=== PATIENT | female | born 1950 | race Caucasian/White ===

== ENCOUNTER 2017-01-20 15:32 | Inpatient (IN) ==
[2017-01-20 16:36] LABS: URINE SOURCE CLEAN CATCH
[2017-01-20 16:44] LABS: BILIRUBIN URINE SMALL (NEGATIVE); BLOOD URINE NEGATIVE (NEGATIVE); COLOR YELLOW; GLUCOSE URINE NEGATIVE (NEGATIVE); LEUKOCYTES URINE LARGE (NEGATIVE); NITRITE URINE NEGATIVE (NEGATIVE); PROTEIN URINE 70 mg/dL (NEGATIVE); SP GRAVITY URINE 1.044; TURBIDITY URINE HAZY (CLEAR); UR EPITHELIAL CELLS >10 /HPF (<10); URINE BACTERIA 1+ /HPF; URINE CULTURE NEEDED? YES; URINE MICRO REVIEW NEEDED? YES; URINE RBC <10 /HPF (<10); URINE WBC TNTC /HPF (<10); UROBILINOGEN URINE 4 mg/dL (NORMAL)
[2017-01-20] MEDS: PROTONIX IV SCH (16:48)
[2017-01-20] MEDS: SODIUM CHLORIDE 0.9% INJ SCH (16:48)
[2017-01-20] MEDS: LOVENOX SUBQ SCH (16:48)
[2017-01-20] MEDS: NS 1,000 ML IV SCH (16:49)
[2017-01-20 16:50] LABS: MANUAL DIFF NEEDED? NO
[2017-01-20 16:53] LABS: BASO% 0.3 % (0.0-0.8); EOS# 0.37 X1000 (0.0-0.7); EOS% 2.6 % (0.0-10.0); HEMATOCRIT 42.9 % (37.0-47.0); HEMOGLOBIN 13.9 g/dL (12.0-16.0); IMM GRAN# 0.02 X1000 (0.0-0.04); IMM GRAN% 0.1 % (0.0-0.5); LYMPH# 2.17 X1000 (1.2-3.4); LYMPH% 15.5 % (20.5-51.1); MCH 30.5 PG (27-31); MCHC 32.4 g/dL (33-37); MCV 94.3 FL (81-99); MONO# 0.91 X1000 (0.11-0.59); MONO% 6.5 % (1.7-9.3); MPV 10.9 FL (7.4-10.4); PLT 296 X1000 (130-400); RBC 4.55 XMIL (4.2-5.4)
[2017-01-20 16:56] LABS: URINE CASTS NONE SEEN
[2017-01-20 17:05] LABS: INR 0.98; PROTIME 10.3 Seconds (9.2-11.7); PTT 27.2 Seconds (22.0-36.0)
[2017-01-20 17:13] LABS: ALBUMIN 3.4 g/dL (3.5-5.0); CALCIUM 9.4 mg/dL (8.8-10.2); POTASSIUM 4.5 mmol/L (3.5-5.1); TOTAL BILIRUBIN 0.2 mg/dL (0.20-1.00); TOTAL PROTEIN 6.7 g/dL (6.3-8.3)
[2017-01-20] MEDS ORDERED: RESTASIS 0.05% OPH DROPS BOTH EYES PRN (17:32)
[2017-01-20] MEDS: INVANZ 1 GM/NS 1 GM/50 ML IVPB IV SCH (17:43)
[2017-01-20 17:56] LABS: ALLEN TEST YES; BE 4.1 mmoll (-3.0-3.0); BLOOD TYPE ARTERIAL; DRAW SITE R RADIAL; METHB 0.7 % (0.0-1.5); O2(CT) 20.3 mL/dL (15.0-23.0); PCO2(98.6) 50 mmHg (35-45); PO2(98.6) 79 mmHg (60-100); SAMPLE BLOOD; SAO2 97.3 % (95.0-100.0); THB 15.2 g/dL (11.5-17.4); pH(98.6) 7.39 (7.35-7.45)
[2017-01-20 17:57] LABS: MODALITY CANNULA
[2017-01-20] MEDS: DUONEB (A & A) INH SCH ×2 (19:09→23:03)
[2017-01-20] MEDS: SYMBICORT 160/4.5 MICROGM INHALER INH SCH (19:09)
[2017-01-20] MEDS: LASIX PO SCH (20:18)
[2017-01-20] MEDS: LYRICA PO SCH (20:19)
[2017-01-20] MEDS: CRESTOR PO SCH (20:19)
[2017-01-20] MEDS: COREG PO SCH (20:19)
[2017-01-20] MEDS: DESYREL PO SCH (20:19)
[2017-01-20] MEDS ORDERED: SOLU-MEDROL IV ONE (20:42)
[2017-01-21] MEDS ORDERED: SOLU-MEDROL IV ONE (01:45)
[2017-01-21] MEDS: DUONEB (A & A) INH SCH ×6 (03:43→22:53)
[2017-01-21] MEDS: NS 1,000 ML IV SCH ×4 (05:27→21:18)
[2017-01-21] MEDS: SYMBICORT 160/4.5 MICROGM INHALER INH SCH ×2 (07:45→19:10)
[2017-01-21] MEDS: SPIRIVA INH SCH (07:46)
[2017-01-21] MEDS: DALIRESP PO SCH (10:15)
[2017-01-21] MEDS: LYRICA PO SCH ×2 (10:15→21:17)
[2017-01-21] MEDS: PREDNISONE PO SCH (10:15)
[2017-01-21] MEDS: COREG PO SCH ×2 (10:15→21:17)
[2017-01-21] MEDS: ESTRACE PO SCH (10:16)
[2017-01-21] MEDS: CELEBREX PO SCH (10:16)
[2017-01-21] MEDS: CYMBALTA PO SCH (10:16)
[2017-01-21] MEDS: NORVASC PO SCH (10:16)
[2017-01-21] MEDS: LASIX PO SCH ×3 (10:16→22:36)
[2017-01-21] MEDS: NORCO-5 PO PRN ×2 (12:09→21:17)
[2017-01-21] MEDS: PROTONIX IV SCH (17:02)
[2017-01-21] MEDS: SODIUM CHLORIDE 0.9% INJ SCH (17:02)
[2017-01-21] MEDS: GLUCOPHAGE PO SCH (17:02)
[2017-01-21] MEDS: INVANZ 1 GM/NS 1 GM/50 ML IVPB IV SCH (17:02)
[2017-01-21] MEDS: LOVENOX SUBQ SCH (17:03)
[2017-01-21] MEDS: DESYREL PO SCH (21:17)
[2017-01-21] MEDS: CRESTOR PO SCH (21:17)
[2017-01-22] MEDS: DUONEB (A & A) INH SCH ×6 (03:50→23:05)
[2017-01-22] MEDS: ATIVAN PO PRN ×2 (04:29→22:23)
[2017-01-22] MEDS: NORCO-5 PO PRN (04:29)
[2017-01-22] MEDS: LASIX PO SCH ×2 (06:58→15:06)
[2017-01-22 07:17] LABS: MANUAL DIFF NEEDED? NO
[2017-01-22 07:36] LABS: BASO% 0.2 % (0.0-0.8); EOS# 0.08 X1000 (0.0-0.7); EOS% 0.7 % (0.0-10.0); HEMATOCRIT 34.2 % (37.0-47.0); IMM GRAN# 0.06 X1000 (0.0-0.04); IMM GRAN% 0.5 % (0.0-0.5); LYMPH% 19.5 % (20.5-51.1); MCH 30.4 PG (27-31); MCHC 32.2 g/dL (33-37); MCV 94.5 FL (81-99); MONO# 1.26 X1000 (0.11-0.59); MONO% 11.2 % (1.7-9.3); MPV 10.6 FL (7.4-10.4); NEUT% 67.9 % (42.2-75.2); PLT 254 X1000 (130-400); RBC 3.62 XMIL (4.2-5.4)
[2017-01-22 07:46] LABS: AGAP 8; BUN 19 mg/dL (8-22); CHLORIDE 102 mmol/L (98-107); COSMO 289; POTASSIUM 4.1 mmol/L (3.5-5.1); SODIUM 143 mmol/L (136-145); TCO2 33 mmol/L (25-35)
[2017-01-22] MEDS: COREG PO SCH ×2 (10:06→22:16)
[2017-01-22] MEDS: PREDNISONE PO SCH (10:06)
[2017-01-22] MEDS: CYMBALTA PO SCH (10:06)
[2017-01-22] MEDS: ESTRACE PO SCH (10:07)
[2017-01-22] MEDS: LYRICA PO SCH ×2 (10:07→22:16)
[2017-01-22] MEDS: NORVASC PO SCH (10:07)
[2017-01-22] MEDS: DALIRESP PO SCH (10:07)
[2017-01-22] MEDS: CELEBREX PO SCH (10:07)
[2017-01-22] MEDS: SYMBICORT 160/4.5 MICROGM INHALER INH SCH ×2 (11:48→19:50)
[2017-01-22] MEDS: SPIRIVA INH SCH (11:48)
[2017-01-22] MEDS: CYANOCOBALAMIN IM SCH (13:32)
[2017-01-22] MEDS: NS 1,000 ML IV SCH (13:32)
[2017-01-22] MEDS: DIFLUCAN PO SCH (13:32)
[2017-01-22] MEDS: LOVENOX SUBQ SCH (17:20)
[2017-01-22] MEDS: SODIUM CHLORIDE 0.9% INJ SCH (17:20)
[2017-01-22] MEDS: PROTONIX IV SCH (17:20)
[2017-01-22] MEDS: GLUCOPHAGE PO SCH (17:20)
[2017-01-22] MEDS: INVANZ 1 GM/NS 1 GM/50 ML IVPB IV SCH (17:22)
[2017-01-22] MEDS: DESYREL PO SCH (22:16)
[2017-01-22] MEDS: CRESTOR PO SCH (22:16)
[2017-01-23] MEDS: NS 1,000 ML IV SCH (01:40)
[2017-01-23] MEDS: DUONEB (A & A) INH SCH ×3 (03:05→11:22)
[2017-01-23] MEDS: LASIX PO SCH (06:38)
[2017-01-23] MEDS: SPIRIVA INH SCH (07:35)
[2017-01-23] MEDS: SYMBICORT 160/4.5 MICROGM INHALER INH SCH (07:35)
[2017-01-23 08:29] VITALS: BP 123/71
[2017-01-23] MEDS: CELEBREX PO SCH (08:36)
[2017-01-23] MEDS: CYMBALTA PO SCH (08:36)
[2017-01-23] MEDS: ESTRACE PO SCH (08:36)
[2017-01-23] MEDS: DALIRESP PO SCH (08:36)
[2017-01-23] MEDS: NORVASC PO SCH (08:37)
[2017-01-23] MEDS: LYRICA PO SCH (08:37)
[2017-01-23] MEDS: COREG PO SCH (08:37)
[2017-01-23] MEDS: PREDNISONE PO SCH (08:37)
[2017-01-23] MEDS: DIFLUCAN PO SCH (08:37)
[2017-01-23] MEDS: CYANOCOBALAMIN IM SCH (08:38)
[2017-01-23] MEDS ORDERED: DIFLUCAN PO SCH (09:00)
[2017-01-23] MEDS: NORCO-5 PO PRN (13:06)
== END 2017-01-23 14:05 | disposition home or self-care (01) ==
LOC: DIRADM → 3N 15:32
PROVIDERS: ADMIT Internal Medicine; ATTEND Internal Medicine

== ENCOUNTER 2019-08-06 10:51 | Inpatient (IN) ==
[2019-08-06] MEDS ORDERED: VENTOLIN HFA INH PRN (12:45)
--- NOTE | 2019-08-06 12:55 | EKG Report ---
Test Performed on : 08/06/2019 12:45:51 PM Test Reason : COPD new patient Blood Pressure : / mmHG Vent. Rate : 079 BPM Atrial Rate : 079 BPM P-R Int : 128 ms QRS Dur : 070 ms QT Int : 358 ms P-R-T Axes : 072 070 061 degrees QTc Int : 410 ms Normal sinus rhythm. Normal ECG When compared with ECG of 23-DEC-2017 09:04, No significant change was found Confirmed by Juan Carlos Brown MD ([id number]) on 08/06/2019 3:05:56 PM
[2019-08-06] MEDS ORDERED: D50W SYRINGE IV PRN (13:00)
--- NOTE | 2019-08-06 13:09 | Diag Imaging Result Doc PS360 ---
EXAM: CHEST-PORTABLE HISTORY: COPD new patient TECHNIQUE: Single view COMPARISON: 06/19/2018 FINDINGS: The lungs are well expanded. The heart is not enlarged. The vessels are not distended. There are no infiltrates. No effusion identified. IMPRESSION: Negative exam. Electronically signed by Refugio Shelley 08/06/2019 1:07 PM
[2019-08-06 13:17] LABS: BASO# 0.03 X1000 (0.0-0.2); BASO% 0.2 % (0.0-0.8); EOS% 0.8 % (0.0-10.0); HEMATOCRIT 31.3 % (37.0-47.0); HEMOGLOBIN 9.1 g/dL (12.0-16.0); IMM GRAN# 0.02 X1000 (0.0-0.04); IMM GRAN% 0.2 % (0.0-0.5); LYMPH# 1.59 X1000 (1.2-3.4); MCH 26.8 PG (27-31); MCHC 29.1 g/dL (33-37); MCV 92.3 FL (81-99); MONO% 7.4 % (1.7-9.3); MPV 9.9 FL (7.4-10.4); NEUT# 9.55 X1000 (1.4-6.5); NEUT% 78.4 % (42.2-75.2); PLT 368 X1000 (130-400); RBC 3.39 XMIL (4.2-5.4); WBC 12.19 X1000 (4.8-10.8)
[2019-08-06 13:27] LABS: ALLEN TEST YES; BE 7.3 mmoll (-3.0-3.0); BLOOD TYPE ARTERIAL; HCO3-(ACT) 30.5 mmoll (20.0-26.0); METHB 0.8 % (0.0-1.5); O2(CT) 11.6 mL/dL (15.0-23.0); PO2(98.6) 50 mmHg (60-100); SAMPLE BLOOD; SAO2 89.1 % (95.0-100.0); THB 9.4 g/dL (11.5-17.4); pH(98.6) 7.41 (7.35-7.45)
[2019-08-06 13:28] LABS: PCO2(98.6) 52 mmHg (35-45)
[2019-08-06 13:29] LABS: MODALITY ROOM AIR; O2HB 87.4 % (95.0-99.0)
[2019-08-06] MEDS: CARAFATE PO SCH ×3 (13:29→23:17)
[2019-08-06] MEDS: SOLU-MEDROL IV SCH ×2 (13:29→23:17)
[2019-08-06] MEDS: LOVENOX SUBQ SCH (13:29)
[2019-08-06] MEDS: GLUCOPHAGE PO SCH (13:30)
[2019-08-06] MEDS: ZOSYN 3.375 GM in NS 50 ML IV SCH ×3 (13:31→23:18)
[2019-08-06 13:50] LABS: AGAP 9; ALB/GLOB RATIO 1.4; ALBUMIN 3.4 g/dL (3.5-5.0); ALKALINE PHOSPHATASE 94 U/L (32-104); BUN 12 mg/dL (8-22); CALCIUM 9.3 mg/dL (8.8-10.2); CHLORIDE 104 mmol/L (98-107); COSMO 289; CREATININE 0.9 mg/dL (0.5-0.9); ESTIMATED GFR > 60; GLUCOSE 107 mg/dL (70-104); GOT 11 U/L (10-30); GPT 9 U/L (10-36); POTASSIUM 4.6 mmol/L (3.5-5.1); SODIUM 145 mmol/L (136-145); TCO2 32 mmol/L (25-35); TOTAL BILIRUBIN < 0.15 mg/dL (0.20-1.00); TOTAL PROTEIN 5.9 g/dL (6.3-8.3)
[2019-08-06] MEDS: LEVAQUIN 500 MG/D5W 500 MG/100 ML IVPB IV SCH (14:12)
[2019-08-06 14:24] LABS: URINE SOURCE CLEAN CATCH
[2019-08-06 14:29] LABS: BILIRUBIN URINE NEGATIVE (NEGATIVE); BLOOD URINE NEGATIVE (NEGATIVE); COLOR YELLOW; GLUCOSE URINE NEGATIVE (NEGATIVE); KETONE URINE NEGATIVE (NEGATIVE); LEUKOCYTES URINE NEGATIVE (NEGATIVE); NITRITE URINE NEGATIVE (NEGATIVE); PH URINE 7.5; PROTEIN URINE TRACE mg/dL (NEGATIVE); SP GRAVITY URINE 1.024; TURBIDITY URINE HAZY (CLEAR); UROBILINOGEN URINE 2 mg/dL (NORMAL)
[2019-08-06 14:31] LABS: UR EPITHELIAL CELLS <10 /HPF (<10); URINE BACTERIA 2+ /HPF; URINE RBC <10 /HPF (<10); URINE WBC <10 /HPF (<10)
[2019-08-06] MEDS: LYRICA PO SCH ×2 (15:14→23:17)
[2019-08-06] MEDS: DUONEB (A & A) INH SCH ×3 (15:40→22:59)
[2019-08-06] MEDS: HUMALOG SUBQ SCH ×2 (16:29→23:30)
--- NOTE | 2019-08-06 19:00 | HISTORY AND PHYSICAL ---
CHIEF COMPLAINT: Chest congestion, cough, shortness of breath. HISTORY OF PRESENT ILLNESS: Ms. Jacome is a 68-year-old, white female patient, known case of advanced COPD, requiring home oxygen nebulizer treatment. The patient started getting sick yesterday, increasing cough, chest congestion, expectoration, which was yellowish-green in color, increasing shortness of breath, decreased exercise tolerance. The patient was complaining of low- grade fever. She denied any typical chest pain. The patient was getting short of breath walking across the room. The patient was using her oxygen and nebulizer treatment, her prednisone, but it was not helping. The patient did have some chest wall pain when she coughed. The patient called the office. We evaluated her in the office. Her presentation was COPD exacerbation, and I decided to admit the patient for further care. The patient was in moderate respiratory distress. The patient denied any leg swelling. No nausea or vomiting. The patient did have some runny nose, stuffy nose, scratchy throat. No history of exposure to any sick patient with known illness. No recent weight loss. No heat or cold intolerance. The patient did have polyuria, polydipsia. No dysuria. Denied any vaginal discharge, spotting, bleeding. The patient was claiming compliance to her medications. The patient does have history of diabetes mellitus on medication. No major hypoglycemic episode. Denied being depressed. No heat or cold intolerance. No focal numbness, tingling, weakness. No further history available at this time. ALLERGIES: No known drug allergy. MEDICATIONS: Includes nebulizer treatment, Norvasc, Astelin nose spray, Coreg, Cymbalta, Estradiol, Trelegy, Synthroid, metformin, Myrbetriq, Singulair, Prilosec, potassium, prednisone, Lyrica, Daliresp, Crestor, Carafate, trazodone. PAST MEDICAL HISTORY: Gastritis and reflux disease, hyperlipidemia, COPD, peripheral neuropathy, insomnia, rhinitis, urinary incontinence, hypothyroidism, menopause, situational depression, low back pain. PERSONAL HISTORY: , nonsmoker. Denied alcohol or substance abuse. Patient is on disability. FAMILY HISTORY: Significant for lung cancer in the sister, otherwise noncontributory. REVIEW OF SYSTEMS: As per HPI. PHYSICAL EXAMINATION: GENERAL: Elderly white female patient in mild distress. VITAL SIGNS: Blood pressure 122/54, pulse 85, respirations 20, temperature 98.5 degrees, O2 saturation 94%. SKIN: Senile turgor. HEENT: Head atraumatic, normocephalic. [place] conjunctivae. Anicteric sclerae. Extraocular muscle movement normal. Fundus cannot be penetrated. Good oral hygiene. No tonsillopharyngeal congestion or exudate. Ears and nose benign. NECK: Supple. No JVD, thyromegaly or lymphadenopathy. CHEST: Bilateral good air entry present. Bilateral occasional wheezing. No rales. CARDIOVASCULAR: S1 and S2 heard. No gallop or thrill. ABDOMEN: Soft, globular. Bowel sounds present. No organomegaly or mass. EXTREMITIES: No cyanosis, clubbing. No acute DVT. Peripheral pulsation intact. CENTRAL NERVOUS SYSTEM: Alert, awake, able to move all 4 limbs. MUSCULOSKELETAL SYSTEM: Crepitation in both the knee joints. Vague tenderness lumbosacral spine. IMPRESSION: The patient presented with: 1. Chronic obstructive pulmonary disease exacerbation most likely due to bronchitis, rule out pneumonia. 2. Chronic respiratory failure, both hypoxemic and hypercarbic. 3. Diabetes mellitus on insulin. 4. Situational depression. 5. Gastritis and reflux disease. 6. Hyperlipidemia. 7. Rhinitis. PLAN: Admit the patient. IV antibiotics. Bronchodilator treatment. Check appropriate labs. Pulmonary consult with her cafeteria cook. Overall plan discussed with the patient, and she is in agreement. Her chest x-ray was benign. EKG reviewed. Lab data revealed mild leukocytosis with left shift. Her D-dimer was 1.33. Blood gas: pH 7.41, pCO2 52, pO2 was 50 and O2 saturation was 89.1. This was done on room air. Her electrolytes result also reviewed. Cardiac isoenzymes were negative. Urinalysis results reviewed. We will continue her home medicine. cc: Lexx Arriaga MD
[2019-08-06] MEDS: MUCOMYST 20% INH SCH (20:06)
[2019-08-06] MEDS: COREG PO SCH (23:17)
[2019-08-06] MEDS: DESYREL PO SCH (23:17)
[2019-08-06] MEDS: CRESTOR PO SCH (23:18)
[2019-08-06] MEDS: SINGULAIR PO SCH (23:18)
[2019-08-07] MEDS: DUONEB (A & A) INH SCH ×2 (03:40→08:02)
[2019-08-07] MEDS: ZOSYN 3.375 GM in NS 50 ML IV SCH ×4 (03:44→22:16)
[2019-08-07] MEDS: ASTELIN NASAL SPRAY NAS SCH ×2 (03:45→14:11)
[2019-08-07] MEDS: SOLU-MEDROL IV SCH ×3 (06:41→22:16)
[2019-08-07] MEDS: HUMALOG SUBQ SCH ×4 (06:41→22:17)
[2019-08-07] MEDS: SYNTHROID PO SCH (06:54)
[2019-08-07] MEDS: PRILOSEC PO SCH ×2 (06:54→07:02)
[2019-08-07 07:05] LABS: HEMATOCRIT 30.7 % (37.0-47.0); HEMOGLOBIN 9.1 g/dL (12.0-16.0); IMM GRAN# 0.05 X1000 (0.0-0.04); IMM GRAN% 0.5 % (0.0-0.5); LYMPH# 1.19 X1000 (1.2-3.4); LYMPH% 12.6 % (20.5-51.1); MCH 26.8 PG (27-31); MCHC 29.6 g/dL (33-37); MCV 90.3 FL (81-99); MONO# 0.15 X1000 (0.11-0.59); MONO% 1.6 % (1.7-9.3); MPV 10.1 FL (7.4-10.4); NEUT# 8.09 X1000 (1.4-6.5); NEUT% 85.3 % (42.2-75.2); PLT 401 X1000 (130-400); RDW 13.5 % (11.5-14.5); WBC 9.48 X1000 (4.8-10.8)
[2019-08-07 07:17] LABS: AGAP 9; ALB/GLOB RATIO 0.9; ALBUMIN 3.2 g/dL (3.5-5.0); ALKALINE PHOSPHATASE 93 U/L (32-104); BUN 15 mg/dL (8-22); CALCIUM 9.4 mg/dL (8.8-10.2); CHLORIDE 103 mmol/L (98-107); COSMO 284; CREATININE 0.8 mg/dL (0.5-0.9); ESTIMATED GFR > 60; GLUCOSE 134 mg/dL (70-104); GOT 9 U/L (10-30); GPT 7 U/L (10-36); POTASSIUM 4.1 mmol/L (3.5-5.1); SODIUM 141 mmol/L (136-145); TCO2 29 mmol/L (25-35); TOTAL BILIRUBIN 0.17 mg/dL (0.20-1.00); TOTAL PROTEIN 6.6 g/dL (6.3-8.3)
[2019-08-07 07:21] LABS: HEMOGLOBIN A1C 6.1 % (4.8-6.0)
--- NOTE | 2019-08-07 07:53 | PROGRESS NOTE ---
DATE: 08/07/2019 SUBJECTIVE: Ms. Jacome is doing better. Shortness of breath is improving. The patient does have some cough with scanty sputum production. She denied any nausea or vomiting. No pleuritic type of chest pain. Her wheezing is improving. The patient claims she was not able to sleep well. Patient admitted with chest congestion, cough, wheezing, increasing shortness of breath, COPD exacerbation. OBJECTIVE: Vital Signs: Vital signs noted. Neck: Supple. No JVD. Lungs: Bilateral good air entry present. Occasional wheezing. CVS: S1 and S2 heard. Abdomen: Soft, globular. Bowel sounds present. Extremities: No cyanosis, clubbing. No acute DVT. URGENT CARE: Alert, awake, able to move all 4 limbs. The patient's medical problems includes: 1. Chronic obstructive pulmonary disease exacerbation. Clinically doing better. 2. NIDDM. Last hemoglobin A1c checked today was 6.1. 3. Hypoxemic and hypercarbic respiratory failure. 4. Situational depression. The patient was tested for influenza and COVID-19. Her chest x-ray results reviewed. Overall, patient is doing better. We will continue current treatment. Close observation. cc: Lexx Arriaga MD
[2019-08-07 07:58] LABS: LYMPHS 15 % (21-51); SEGS 85 % (42-75)
[2019-08-07] MEDS: MUCOMYST 20% INH SCH (08:02)
[2019-08-07] MEDS: DALIRESP PO SCH (08:24)
[2019-08-07] MEDS: CYMBALTA PO SCH (08:26)
[2019-08-07] MEDS: CARAFATE PO SCH ×4 (08:26→22:16)
[2019-08-07] MEDS: MYRBETRIQ E.R. PO SCH (08:26)
[2019-08-07] MEDS: KLOR-CON PO SCH (08:27)
[2019-08-07] MEDS: COREG PO SCH ×2 (08:29→22:15)
[2019-08-07] MEDS: ESTRACE PO SCH (08:29)
[2019-08-07] MEDS: NORVASC PO SCH (08:30)
[2019-08-07] MEDS: LYRICA PO SCH ×3 (08:30→22:16)
[2019-08-07] MEDS ORDERED: UMECLIDIN intranasal SCH (09:00)
[2019-08-07] MEDS ORDERED: VILANTER intranasal SCH (09:00)
[2019-08-07] MEDS ORDERED: PREDNISONE PO SCH (09:00)
[2019-08-07] MEDS ORDERED: [UNRECOGNIZED DRUG - OTHER] intranasal SCH (09:00)
[2019-08-07] MEDS ORDERED: FLUTICASONE intranasal SCH (09:00)
--- NOTE | 2019-08-07 10:50 | CONSULTATION ---
DATE OF CONSULTATION: 08/07/2019 REFERRING PHYSICIAN: Dr. Arriaga. CHIEF COMPLAINT: Evaluation for shortness of breath, chest tightness, expectoration. The patient is known to have COPD. HISTORY OF PRESENTING ILLNESS: This is a 68-year-old female known to our practice with advanced COPD on home oxygen, sleep apnea on home CPAP machine, diabetes, hyperlipidemia, reflux disease, hypothyroidism, depression, and chronic back pain. She presented to the hospital with shortness of breath, cough, chest congestion, expectoration. She is on home steroids. Some chest discomfort. PAST MEDICAL HISTORY: As above. PAST SURGICAL HISTORY: As above, otherwise noncontributory. SOCIAL HISTORY: She is staying home, retired, and her daughter lives with her. She is not a smoker. MEDICATIONS: Medications at home and at the hospital were reviewed ALLERGIES: No known drug allergies. REVIEW OF SYSTEMS: As detailed in the history of presenting illness, otherwise noncontributory. FAMILY HISTORY: Lung cancer in siblings. PHYSICAL EXAMINATION: Vital Signs: Noted. Head and Neck: Examined. Trachea midline. Chest Examination: Reduced entry. Prolonged expiratory phase. Cardiac Examination: S1, S2. Abdominal Examination: Nontender. Leg Examination: No pedal edema. Neurologic Examination: Awake and communicative, alert. LABORATORIES AND INVESTIGATIONS: Chest x-ray shows no acute changes. CBC, CMP seen with WBC being 9.8. Earlier, it was 12.21 yesterday. She is on antibiotics and steroids. PH of 7.41, pCO2 of 52, and PO2 of 50. Medications in the hospital were reviewed and they include Solu-Medrol, Zosyn, Levaquin. Other medications were reviewed. ASSESSMENT AND PLAN: A 68-year-old female with: 1. Chronic obstructive pulmonary disease exacerbation. 2. Possible upper respiratory tract infection with expectoration. Given the fact that she is elderly and she is partially immunocompromised, and is on steroids, we are going to test for Covid-19. 3. Rule out pulmonary embolism with CT angiogram after withholding metformin. 4. Continue steroids and antibiotics. cc: MD Lexx Balderrama MD
[2019-08-07] MEDS: LEVAQUIN 500 MG/D5W 500 MG/100 ML IVPB IV SCH (14:08)
[2019-08-07] MEDS: LOVENOX SUBQ SCH (14:10)
[2019-08-07] MEDS: VENTOLIN HFA INH SCH ×3 (16:05→20:24)
[2019-08-07] MEDS: SINGULAIR PO SCH (22:15)
[2019-08-07] MEDS: DESYREL PO SCH (22:16)
[2019-08-07] MEDS: CRESTOR PO SCH (22:16)
[2019-08-08] MEDS: ASTELIN NASAL SPRAY NAS SCH ×4 (02:51→23:24)
[2019-08-08] MEDS: VENTOLIN HFA INH SCH ×5 (03:30→23:22)
[2019-08-08] MEDS: ZOSYN 3.375 GM in NS 50 ML IV SCH ×4 (04:20→20:24)
[2019-08-08] MEDS: SOLU-MEDROL IV SCH (04:20)
[2019-08-08] MEDS: HUMALOG SUBQ SCH ×5 (06:53→20:36)
[2019-08-08] MEDS: SYNTHROID PO SCH (06:53)
--- NOTE | 2019-08-08 07:12 | PROGRESS NOTE ---
DATE: 08/08/2019 SUBJECTIVE: Ms. Jacome is feeling better. No unusual shortness of breath. Does have mild chronic cough. No high-grade fever or chills. Denied any nausea or vomiting. Oral intake is fair. The patient was able to sleep better last night. OBJECTIVE: Vital Signs: Noted. Neck: Supple. No JVD. Lungs: Bilateral good air entry present. Occasional wheezing. CVS: S1 and S2 heard. Abdomen: Soft, nontender. Bowel sounds present. Extremities: No cyanosis, clubbing. No acute DVT. PHOTOCOPY OPERATOR: Alert, awake. Able to move all 4 limbs. ASSESSMENT: 1. The patient was admitted with chronic obstructive pulmonary disease exacerbation. 2. Chronic hypoxemic and hypercarbic respiratory failure. 3. Anemia, most likely of chronic disease. 4. Urge urinary incontinence, doing well. 5. Hypertension, on Coreg and Norvasc. 6. Hyperlipidemia, on Crestor. 7. Elevated D-dimer. 8. Diabetes mellitus. PLAN: The patient is scheduled to have a CTA of the pulmonary artery. The patient had Covid-19 ordered by bulb sorter, waiting for the results. Out of bed to chair. Ambulate in the room. The patient is in respiratory isolation. I am going to repeat blood work tomorrow. cc: Lexx Arriaga MD
[2019-08-08] MEDS: PRILOSEC PO SCH (08:42)
[2019-08-08] MEDS: ESTRACE PO SCH (08:42)
[2019-08-08] MEDS: CARAFATE PO SCH ×4 (08:42→20:24)
[2019-08-08] MEDS: COREG PO SCH ×2 (08:43→20:25)
[2019-08-08] MEDS: KLOR-CON PO SCH (08:43)
[2019-08-08] MEDS: MYRBETRIQ E.R. PO SCH (08:43)
[2019-08-08] MEDS: CYMBALTA PO SCH (08:43)
[2019-08-08] MEDS: DALIRESP PO SCH (08:43)
[2019-08-08] MEDS: NORVASC PO SCH (08:43)
[2019-08-08] MEDS: LYRICA PO SCH ×3 (08:44→20:25)
[2019-08-08] MEDS: PREDNISONE PO SCH (08:44)
--- NOTE | 2019-08-08 09:37 | Diag Imaging Result Doc PS360 ---
EXAM: CT ANGIOGRM PULMONARY ARTERIES INDICATION: rule out PE TECHNIQUE: This exam was performed using automated exposure control, adjustment of mA or kV according to patient size, and/or use of iterative reconstruction technique. Thin section axial images and 3-D MIPS were obtained. COMPARISON: 06/14/2016 FINDINGS: There is no evidence of pulmonary embolism. There is mild to moderate patchy thoracic aortic atherosclerotic calcification. There is no evidence of thoracic aortic aneurysm or dissection. There are calcified subcarinal lymph nodes indicating prior granulomatous disease. There is no evidence of significant mediastinal or hilar lymphadenopathy, otherwise. There is likely very mild emphysema. There is atelectasis and/or scarring involving the lingula and right middle lobe. This is also seen on the previous study but is more prominent. There is a small focal opacity at the posterior aspect of the right lower lobe on image 62 of series 4 that was probably present on the previous study but it is more prominent. This has the appearance of focal fibrosis or possibly atypical focal pneumonitis. There are mild fibrotic changes and atelectasis at both lung bases not identified on the previous study. There are a few scattered nodules in the right lower lobe that are grossly unchanged. There is a focus of fibrosis in the left upper lobe near the apex that is essentially stable. Limited views of the upper abdomen are essentially unremarkable. IMPRESSION: 1.No evidence of pulmonary embolism. 2.Patchy fibrotic foci and atelectasis, there is overall worsening the previous study as detailed above. 3.A few stable vague nodular opacities in the right lower lobe and a small focal opacity at the posterior aspect of the right lower lobe that is more prominent. This may represent worsening fibrosis or atypical pneumonitis that has worsened. Electronically signed by Bernardo Roberts 08/08/2019 9:34 AM
[2019-08-08] MEDS: LEVAQUIN 500 MG/D5W 500 MG/100 ML IVPB IV SCH ×2 (12:14→14:37)
[2019-08-08] MEDS: LOVENOX SUBQ SCH (12:14)
[2019-08-08] MEDS: DESYREL PO SCH (20:24)
[2019-08-08] MEDS: SINGULAIR PO SCH (20:25)
[2019-08-08] MEDS: CRESTOR PO SCH (20:25)
[2019-08-09] MEDS: VENTOLIN HFA INH SCH ×2 (03:00→08:10)
[2019-08-09] MEDS: ZOSYN 3.375 GM in NS 50 ML IV SCH ×3 (03:55→16:00)
[2019-08-09] MEDS: HUMALOG SUBQ SCH ×3 (06:11→16:06)
[2019-08-09] MEDS: SYNTHROID PO SCH (06:14)
[2019-08-09] MEDS ORDERED: LASIX IV ONE (06:55)
[2019-08-09 06:59] LABS: BASO# 0.01 X1000 (0.0-0.2); BASO% 0.1 % (0.0-0.8); HEMATOCRIT 30.2 % (37.0-47.0); HEMOGLOBIN 8.8 g/dL (12.0-16.0); IMM GRAN# 0.07 X1000 (0.0-0.04); IMM GRAN% 0.5 % (0.0-0.5); LYMPH# 2.58 X1000 (1.2-3.4); LYMPH% 18.2 % (20.5-51.1); MCH 26.6 PG (27-31); MCHC 29.1 g/dL (33-37); MCV 91.2 FL (81-99); MONO% 9.2 % (1.7-9.3); MPV 9.8 FL (7.4-10.4); NEUT# 10.18 X1000 (1.4-6.5); PLT 439 X1000 (130-400); RBC 3.31 XMIL (4.2-5.4); RDW 14.1 % (11.5-14.5); WBC 14.14 X1000 (4.8-10.8)
[2019-08-09 07:19] LABS: AGAP 6; ALB/GLOB RATIO 1.1; ALBUMIN 2.8 g/dL (3.5-5.0); ALKALINE PHOSPHATASE 70 U/L (32-104); BUN 24 mg/dL (8-22); CHLORIDE 109 mmol/L (98-107); COSMO 295; CREATININE 0.8 mg/dL (0.5-0.9); ESTIMATED GFR > 60; GLUCOSE 97 mg/dL (70-104); GOT 10 U/L (10-30); GPT 8 U/L (10-36); MAGNESIUM 2.3 mg/dL (1.5-2.7); POTASSIUM 4.2 mmol/L (3.5-5.1); SODIUM 146 mmol/L (136-145); TCO2 31 mmol/L (25-35); TOTAL BILIRUBIN < 0.15 mg/dL (0.20-1.00); TOTAL PROTEIN 5.3 g/dL (6.3-8.3)
--- NOTE | 2019-08-09 08:04 | PROGRESS NOTE ---
DATE: 08/09/2019 SUBJECTIVE: Ms. Jacome is doing fair. Her chest congestion and cough is improving. No typical chest pain or palpitation. She denied any nausea or vomiting. No diarrhea. OBJECTIVE: Vital Signs: Her vital signs noted. Neck: Supple. No JVD. Lungs: [place] crepitation. Heart: S1 and S2 heard. Abdomen: Soft, globular. Bowel sounds present. GROCERY BAGGER: Alert, awake, able to move all 4 limbs. CONSIDERATION: Chronic obstructive pulmonary disease exacerbation. The patient had elevated D- dimer. She underwent CTA of the pulmonary artery which was negative for pulmonary embolism. Her other problems include gastritis and reflux disease, fibromyalgia, pulmonary fibrosis. I am going to give her a small dose of Lasix for fluid retention secondary to steroid. Continue rest of the treatment. Close observation. If clinical condition permits, we will plan discharging patient home soon. Her hemoglobin is 8.8, hematocrit 30.2. Electrolytes were fairly benign. BUN 24, creatinine was 0.8, magnesium 2.3. cc: Lexx Arriaga MD
[2019-08-09] MEDS: ASTELIN NASAL SPRAY NAS SCH (11:02)
[2019-08-09] MEDS: MYRBETRIQ E.R. PO SCH (11:05)
[2019-08-09] MEDS: LYRICA PO SCH ×2 (11:05→15:56)
[2019-08-09] MEDS: KLOR-CON PO SCH (11:06)
[2019-08-09] MEDS: ESTRACE PO SCH (11:06)
[2019-08-09] MEDS: PRILOSEC PO SCH (11:07)
[2019-08-09] MEDS: CARAFATE PO SCH ×3 (11:07→16:00)
[2019-08-09] MEDS: COREG PO SCH (11:07)
[2019-08-09] MEDS: CYMBALTA PO SCH (11:07)
[2019-08-09] MEDS: PREDNISONE PO SCH (11:08)
[2019-08-09] MEDS: NORVASC PO SCH (11:08)
[2019-08-09] MEDS: DALIRESP PO SCH (11:08)
[2019-08-09] MEDS: LEVAQUIN 500 MG/D5W 500 MG/100 ML IVPB IV SCH (11:16)
[2019-08-09] MEDS: LOVENOX SUBQ SCH ×2 (11:24→12:11)
[2019-08-09] MEDS: GLUCOPHAGE PO SCH ×2 (12:48→15:03)
--- NOTE | 2019-08-09 13:38 | PROGRESS NOTE ---
DATE: 08/09/2019 SUBJECTIVE: She feels better. OBJECTIVE: Vital Signs: Vital signs noted. She is afebrile and pulse oximetry 97 percent on nasal cannula. Head and neck: Trachea midline. Chest: Improving entry and improving wheezing. Cardiac: S1, S2. Abdomen: Nontender. Extremities: No pedal edema. Neurological: Awake, communicative. LABORATORY: CBC, CMP, potassium is 4.2, WBCs for 14.1. CT angiogram from yesterday noted, no PE. ASSESSMENT AND PLAN: Ms. Jacome has chronic obstructive pulmonary disease exacerbation. Pulmonary fibrosis, improving on antibiotics and steroids. Chronic compensated respiratory failure on oxygen and testing for Coronavirus Disease-19 is pending. The patient is cleared to be discharged from pulmonary standpoint per her admitting physician. cc: MD Lexx Balderrama MD
[2019-08-09 16:19] VITALS: BP 124/66
--- NOTE | 2019-08-12 08:17 | DISCHARGE SUMMARY ---
ADMISSION DATE: 08/06/2019 DISCHARGE DATE: 08/09/2019 FINAL DISCHARGE DIAGNOSES: 1. Chronic obstructive pulmonary disease exacerbation. 2. Chronic hypoxemic and hypercarbic respiratory failure. 3. Elevated D-dimer. 4. Hypertension. 5. Gastritis and reflux disease. 6. Fibromyalgia. 7. Pulmonary fibrosis. 8. COVID-19 test was negative. 9. Osteoarthritis. 10. Peripheral neuropathy. 11. Insomnia. 12. Urinary incontinence. 13. Menopause. 14. Low back pain. HOSPITAL COURSE: Ms Jacome is a 68-year-old, white female patient, known case of advanced COPD, requiring home oxygen and nebulizer treatment. Admitted with chest congestion, cough, shortness of breath, wheezing, decreased exercise tolerance. The rest of the information from admission history and physical. The patient admitted to telemetry bed. Patient's D-dimer was elevated. Pulmonary consult obtained with her offc spec. Patient had CTA of the pulmonary artery done which was negative for pulmonary embolism. The patient was treated with IV steroids, IV antibiotics. Her clinical condition stabilized and improved. COVID-19 test was negative, and I decided to discharge patient home. Patient was eager to go home on tapering dose of steroid, oral Ceftin. Continue bronchodilator treatment, Prilosec. Follow up with me in a week. In case of more distress, call us back or go to emergency room. DISCHARGE CONDITION: Satisfactory. LABORATORY DATA: Revealed WBC count 14.14, hemoglobin 8.8, hematocrit 30.2, platelet count was 439. Admission blood gas: The pH 7.41, pCO2 52, PO2 was 50; this was done on room air. Electrolytes done on August 08: Sodium 146, potassium 4.2, CO2 was 31. Urinalysis was benign. Influenza test was negative. DISCHARGE INSTRUCTIONS: Advised patient to take medicine regularly. Follow up with me in a week. In case of more distress, call us back or go to the emergency room. cc: Lexx Arriaga MD
== END 2019-08-09 17:53 | disposition home or self-care (01) | DRG 191 ==
LOC: DIRADM 10:51 → 3N 11:33 → 4N 08-07 09:57
PROVIDERS: ADMIT Internal Medicine; ATTEND Internal Medicine